=== PATIENT | male | born 1990 | race Caucasian/White ===

== ENCOUNTER 2019-01-03 16:36 | Emergency (ER) | payer OTHER ==
[~2019-01-03] VITALS: Ht 177.8 cm; Wt 99.8 kg
[2019-01-03 16:38] VITALS: Ht 177.8 cm; Wt 99.8 kg
[2019-01-03 20:33] VITALS: BP 121/66
== END 2019-01-03 20:33 | disposition home or self-care (01) ==
LOC: ED 16:36
DX: J10.1 Influenza due to other identified influenza virus with other respiratory manifestations (principal); R51 Headache; Z98.890 Other specified postprocedural states
CPT/HCPCS: 80201; 87804; J1100; J1885; J2765; J3475; J7030

== ENCOUNTER 2019-03-12 13:53 | Inpatient (IN) | payer OTHER ==
[~2019-03-12] VITALS: Ht 172.7 cm; Wt 78.2 kg
[2019-03-12 15:58] LABS: BASOPHIL % 0.2 % (0-2)
[2019-03-12 16:00] LABS: PLATELET COUNT 578 x10^3mcL (130-400); RED CELL DISTRIBUTION WIDTH 16.7 % (11.5-14.5)
[2019-03-12 16:19] LABS: CALCIUM 9.5 mg/dL (8.5-10.1); CARBON DIOXIDE 31.4 mmol/L (21-32); CREATININE SERUM 2.4 mg/dL (0.7-1.3); POTASSIUM SERUM 4.7 mmol/L (3.5-5.1)
[2019-03-12 16:26] LABS: BILIRUBIN TOTAL 0.4 mg/dL (0.20-1.00)
[2019-03-12 16:31] LABS: ALBUMIN 2.5 g/dL (3.4-5.0); TOTAL PROTEIN, SERUM 8.9 g/dL (6.4-8.2)
[2019-03-12 16:32] LABS: C REACTIVE PROTEIN 13.3 mg/dL (<=0.9)
[2019-03-12 19:41] LABS: UA SPECIFIC GRAVITY 1.015 (1.005-1.035); microscopic required? YES; urine erythrocyte 3+ (NEGATIVE)
[2019-03-12 20:48] VITALS: BP 156/101
[2019-03-12 20:56] VITALS: Ht 172.7 cm; Wt 78.2 kg
[2019-03-12 21:38] VITALS: BP 135/83
[2019-03-13 05:25] VITALS: BP 148/89
[2019-03-13 05:59] LABS: BASOPHIL % 0.6 % (0-2)
[2019-03-13 06:14] LABS: PLATELET COUNT 610 x10^3mcL (130-400); RED CELL DISTRIBUTION WIDTH 17.1 % (11.5-14.5)
[2019-03-13 06:53] LABS: CALCIUM 8.8 mg/dL (8.5-10.1); CREATININE SERUM 1.9 mg/dL (0.7-1.3); PHOSPHOROUS 5.4 mg/dL (2.5-4.9); POTASSIUM SERUM 4.3 mmol/L (3.5-5.1)
[2019-03-13 07:47] LABS: CARBON DIOXIDE 25.9 mmol/L (21-32)
[2019-03-13 08:42] VITALS: BP 158/105
[2019-03-13 12:09] VITALS: BP 158/109
[2019-03-13 15:58] VITALS: BP 169/108
[2019-03-13] MEDS ORDERED: BACLOFEN10 MG PO (17:06)
[2019-03-13] MEDS ORDERED: NORCO 10-325 T1 EACH PO (17:07)
[2019-03-13] MEDS ORDERED: TRAZODONE100 MG PO (17:09)
[2019-03-13] MEDS ORDERED: HORIZANT300 MG PO (17:15)
[2019-03-13 17:45] VITALS: BP 150/101
[2019-03-13 21:50] VITALS: BP 134/81
[2019-03-14 06:30] VITALS: BP 148/106
[2019-03-14 06:37] LABS: BASOPHIL % 0.8 % (0-2)
[2019-03-14 06:39] LABS: CALCIUM 9.3 mg/dL (8.5-10.1); CARBON DIOXIDE 27.9 mmol/L (21-32); CREATININE SERUM 1.9 mg/dL (0.7-1.3); POTASSIUM SERUM 4.4 mmol/L (3.5-5.1)
[2019-03-14 06:56] LABS: RED CELL DISTRIBUTION WIDTH 16.9 % (11.5-14.5)
[2019-03-14 09:53] VITALS: BP 156/93
[2019-03-14 13:00] VITALS: BP 144/76
[2019-03-14 13:15] LABS: PLATELET COUNT 628 x10^3mcL (130-400)
[2019-03-14 18:02] VITALS: BP 135/100
[2019-03-14 21:25] VITALS: BP 153/90
[2019-03-15 05:43] VITALS: BP 139/75
[2019-03-15 06:58] LABS: CALCIUM 8.6 mg/dL (8.5-10.1); CARBON DIOXIDE 27.7 mmol/L (21-32); CREATININE SERUM 2.4 mg/dL (0.7-1.3); POTASSIUM SERUM 3.8 mmol/L (3.5-5.1)
[2019-03-15 08:37] VITALS: BP 145/88
[2019-03-15 09:40] LABS: BASOPHIL % 0.6 % (0-2)
[2019-03-15 10:05] LABS: PLATELET COUNT 582 x10^3mcL (130-400); RED CELL DISTRIBUTION WIDTH 17.4 % (11.5-14.5)
[2019-03-15 12:43] VITALS: BP 142/84
[2019-03-15] MEDS ORDERED: CIPRO500 MG PO (13:30)
== END 2019-03-15 15:12 | disposition home or self-care (01) | DRG 720 ==
LOC: ED 13:53 → DU 19:24 → MU 03-14 16:06
PROVIDERS: Emergency Medicine; Internal Medicine Nephrology; ADMIT Internal Medicine Pulmonary Disease
DX: A41.9 Sepsis, unspecified organism (principal); N18.4 Chronic kidney disease, stage 4 (severe); G82.20 Paraplegia, unspecified; E46 Unspecified protein-calorie malnutrition; N31.9 Neuromuscular dysfunction of bladder, unspecified; R33.8 Other retention of urine; F12.20 Cannabis dependence, uncomplicated; N13.6 Pyonephrosis; D64.9 Anemia, unspecified; Z99.3 Dependence on wheelchair; Z90.79 Acquired absence of other genital organ(s)
CPT/HCPCS: 82962; G0378; J1956; J7030; Q0092

== ENCOUNTER 2019-04-16 01:09 | Inpatient (IN) | payer SELFPAY ==
[~2019-04-16] VITALS: Ht 172.7 cm; Wt 78.9 kg
[2019-04-16] VITALS (7 sets, daily range): BP systolic 119–145; BP diastolic 71–92; Ht 172.7 cm; Wt 78.9 kg
[~2019-04-16 01:09] MED LIST: BACLOFEN10 MG PO; CIPRO500 MG PO; HORIZANT300 MG PO; NORCO 10-325 T1 EACH PO; TRAZODONE100 MG PO
[2019-04-16 02:27] LABS: PLATELET COUNT 439 x10^3mcL (130-400); RED CELL DISTRIBUTION WIDTH 18.9 % (11.5-14.5)
[2019-04-16 02:40] LABS: BILIRUBIN TOTAL 0.49 mg/dL (0.20-1.00); CALCIUM 8.4 mg/dL (8.5-10.1); CARBON DIOXIDE 15.1 mmol/L (21-32); POTASSIUM SERUM 4.6 mmol/L (3.5-5.1)
[2019-04-16 02:43] LABS: ALBUMIN 2.1 g/dL (3.4-5.0); CREATININE SERUM 10.9 mg/dL (0.7-1.3)
[2019-04-16 02:49] LABS: BAND NEUTROPHIL 1 % (0-10); MONOCYTE 2 % (0-7); SEGMENTED NEUTROPHILS 93 % (37-75); acanthocyte (spur cell) 1+; rbc morphology (normal/abnorm) ABNORMAL (NORMAL)
[2019-04-16 02:51] LABS: PLATELET MORPHOLOGY PLATELETS NORMAL
[2019-04-16] MEDS ORDERED: BUPROPION HYDR300 MG PO (03:13)
[2019-04-16] MEDS ORDERED: ACID REDUCER20 MG PO (03:14)
[2019-04-16] MEDS ORDERED: BACLOFEN5 MG PO (03:14)
[2019-04-16 03:58] LABS: microscopic required? YES; urine erythrocyte TRACE (NEGATIVE)
[2019-04-16 04:36] LABS: T3 TOTAL 0.23 ng/mL
[2019-04-16 05:16] LABS: MAGNESIUM 2.3 mg/dL (1.8-2.4); PHOSPHOROUS 7.6 mg/dL (2.5-4.9)
[2019-04-16 05:23] LABS: CHOLESTEROL/HDL RATIO 3.3
[2019-04-16 05:50] LABS: FREE T4 0.91 ng/dL (0.76-1.46); FREE THYROXINE INDEX 1.6 ug/dL (1.4-4.5); T4(THYROXINE) 4.8 ug/dL (4.7-13.3)
[2019-04-16 09:28] LABS: CALCIUM 8.3 mg/dL (8.5-10.1); CARBON DIOXIDE 17.9 mmol/L (21-32); MAGNESIUM 2.3 mg/dL (1.8-2.4); PHOSPHOROUS 7.9 mg/dL (2.5-4.9); PLATELET COUNT 413 x10^3mcL (130-400); POTASSIUM SERUM 4.6 mmol/L (3.5-5.1); RED CELL DISTRIBUTION WIDTH 18.9 % (11.5-14.5)
[2019-04-16 09:32] LABS: CREATININE SERUM 10.4 mg/dL (0.7-1.3)
[2019-04-16 10:00] LABS: AMPHETAMINE QUAL UR POSITIVE (See below)
[2019-04-16 11:10] LABS: BAND NEUTROPHIL 0 % (0-10); BASOPHIL 0 % (0-2); MONOCYTE 1 % (0-7); SEGMENTED NEUTROPHILS 95 % (37-75)
[2019-04-16 11:11] LABS: PLATELET MORPHOLOGY PLATELETS INCREASED; rbc morphology (normal/abnorm) ABNORMAL (NORMAL)
[2019-04-16 17:16] LABS: CALCIUM 8.2 mg/dL (8.5-10.1); CARBON DIOXIDE 17.1 mmol/L (21-32); POTASSIUM SERUM 3.5 mmol/L (3.5-5.1)
[2019-04-16 17:18] LABS: CREATININE SERUM 9.8 mg/dL (0.7-1.3)
[2019-04-17 05:28] VITALS: BP 134/90
[2019-04-17 06:57] LABS: CALCIUM 8.7 mg/dL (8.5-10.1); CARBON DIOXIDE 20.7 mmol/L (21-32); POTASSIUM SERUM 3.9 mmol/L (3.5-5.1)
[2019-04-17 07:24] LABS: CREATININE SERUM 7.7 mg/dL (0.7-1.3)
[2019-04-17 08:32] VITALS: BP 137/92
[2019-04-17 08:43] LABS: MAGNESIUM 2.1 mg/dL (1.8-2.4); PHOSPHOROUS 6.1 mg/dL (2.5-4.9)
[2019-04-17 09:03] LABS: BILIRUBIN DIRECT 0.09 mg/dL (0.0-0.2); BILIRUBIN TOTAL 0.3 mg/dL (0.20-1.00); TOTAL PROTEIN, SERUM 6.4 g/dL (6.4-8.2)
[2019-04-17 11:15] LABS: BASOPHIL % 0.4 % (0-2)
[2019-04-17 11:20] LABS: PLATELET COUNT 501 x10^3mcL (130-400); RED CELL DISTRIBUTION WIDTH 17.9 % (11.5-14.5)
[2019-04-17 12:44] VITALS: BP 133/86
[2019-04-17 17:48] VITALS: BP 134/79
[2019-04-17 20:48] VITALS: BP 134/94
[2019-04-18 05:20] VITALS: BP 128/84
[2019-04-18 07:24] LABS: LACTIC DEHYDROGENASE (LDH) 741 U/L (100-190)
[2019-04-18 07:30] VITALS: BP 116/75
[2019-04-18 12:25] LABS: CALCIUM 8.6 mg/dL (8.5-10.1); CARBON DIOXIDE 26.5 mmol/L (21-32); POTASSIUM SERUM 3.4 mmol/L (3.5-5.1)
[2019-04-18 12:28] LABS: CREATININE SERUM 4.3 mg/dL (0.7-1.3)
[2019-04-18 12:35] VITALS: BP 135/78
[2019-04-18 12:39] LABS: MAGNESIUM 1.6 mg/dL (1.8-2.4); PHOSPHOROUS 3.4 mg/dL (2.5-4.9)
[2019-04-18 12:48] LABS: BASOPHIL % 0.2 % (0-2)
[2019-04-18 13:03] LABS: RED CELL DISTRIBUTION WIDTH 18.8 % (11.5-14.5)
[2019-04-18 13:14] LABS: PLATELET COUNT 570 x10^3mcL (130-400)
[2019-04-18 16:40] VITALS: BP 130/79
[2019-04-18 20:14] VITALS: BP 145/92
[2019-04-19 05:14] VITALS: BP 142/78
[2019-04-19 06:16] LABS: BASOPHIL % 0.1 % (0-2)
[2019-04-19 06:45] LABS: CALCIUM 8.7 mg/dL (8.5-10.1); CREATININE SERUM 3.2 mg/dL (0.7-1.3); MAGNESIUM 1.8 mg/dL (1.8-2.4); PHOSPHOROUS 3.6 mg/dL (2.5-4.9); POTASSIUM SERUM 4.2 mmol/L (3.5-5.1)
[2019-04-19 06:54] LABS: PLATELET COUNT 688 x10^3mcL (130-400); RED CELL DISTRIBUTION WIDTH 19.1 % (11.5-14.5)
[2019-04-19 07:08] LABS: ALPHA FETOPROTEIN TUMOR MARKER 3.7 ng/mL (0.0-8.3)
[2019-04-19 08:08] VITALS: BP 136/90
[2019-04-19 12:40] VITALS: BP 124/79
[2019-04-19 16:42] VITALS: BP 138/90
[2019-04-19 17:32] VITALS: BP 138/90
[2019-04-19 20:07] VITALS: BP 132/87
[2019-04-20 05:33] VITALS: BP 109/89
[2019-04-20 06:40] LABS: CALCIUM 8.6 mg/dL (8.5-10.1); CARBON DIOXIDE 27.2 mmol/L (21-32); CREATININE SERUM 2.6 mg/dL (0.7-1.3); MAGNESIUM 1.7 mg/dL (1.8-2.4); PHOSPHOROUS 3.7 mg/dL (2.5-4.9); POTASSIUM SERUM 3.8 mmol/L (3.5-5.1)
[2019-04-20 06:44] LABS: BASOPHIL % 0 % (0-2); RED CELL DISTRIBUTION WIDTH 18.6 % (11.5-14.5)
[2019-04-20 06:45] LABS: PLATELET COUNT 755 x10^3mcL (130-400)
[2019-04-20 08:41] VITALS: BP 142/84
[2019-04-20 12:41] LABS: RED BLOOD CELLS 3.64 M/mm3 (4.52-5.90)
[2019-04-20 12:53] LABS: IRON 100 ug/dL (65-170)
[2019-04-20 12:56] LABS: TOTAL IRON BINDING CAPACITY 241 ug/dL (250-450)
[2019-04-20 16:58] VITALS: BP 122/73
[2019-04-20 20:39] VITALS: BP 143/72
[2019-04-21 05:16] VITALS: BP 138/89
[2019-04-21 06:25] LABS: BASOPHIL % 0.1 % (0-2)
[2019-04-21 06:29] LABS: CARBON DIOXIDE 29.6 mmol/L (21-32); CREATININE SERUM 2.3 mg/dL (0.7-1.3); MAGNESIUM 1.4 mg/dL (1.8-2.4); PHOSPHOROUS 3.4 mg/dL (2.5-4.9); POTASSIUM SERUM 4.1 mmol/L (3.5-5.1)
[2019-04-21 07:22] LABS: RED CELL DISTRIBUTION WIDTH 19.1 % (11.5-14.5)
[2019-04-21 07:29] LABS: PLATELET COUNT 868 x10^3mcL (130-400)
[2019-04-21 09:00] VITALS: BP 148/87
== END 2019-04-21 11:53 | disposition left against medical advice (07) | DRG 871 ==
LOC: ED 01:09 → DU 04:04
PROVIDERS: Emergency Medicine; Family Medicine; Internal Medicine; Urology; ADMIT Internal Medicine
DX: A41.9 Sepsis, unspecified organism (principal); J18.9 Pneumonia, unspecified organism; E43 Unspecified severe protein-calorie malnutrition; J96.21 Acute and chronic respiratory failure with hypoxia; I21.A1 Myocardial infarction type 2; G82.20 Paraplegia, unspecified; I42.9 Cardiomyopathy, unspecified; N17.9 Acute kidney failure, unspecified; F32.9 Major depressive disorder, single episode, unspecified; I12.9 Hypertensive chronic kidney disease with stage 1 through stage 4 chronic kidney disease, or unspecified chronic kidney disease; N18.9 Chronic kidney disease, unspecified; F15.10 Other stimulant abuse, uncomplicated; Z53.29 Procedure and treatment not carried out because of patient's decision for other reasons; R74.0 Nonspecific elevation of levels of transaminase and lactic acid dehydrogenase [LDH]; E83.39 Other disorders of phosphorus metabolism; D64.9 Anemia, unspecified; E83.51 Hypocalcemia; R65.20 Severe sepsis without septic shock; D47.3 Essential (hemorrhagic) thrombocythemia; E86.0 Dehydration; Z87.440 Personal history of urinary (tract) infections; Z68.28 Body mass index [BMI] 28.0-28.9, adult; Z79.899 Other long term (current) drug therapy
CPT/HCPCS: 36600; 83880; 84439; 85378; 87804; A9540; G0378; J0696; J1644; J1885; J1940; J2270; J2405; J2543; J2920; J3370; J3490; J7030; J7050; J7060; Q0092

== ENCOUNTER 2019-07-12 21:48 | Inpatient (IN) | payer OTHER ==
[~2019-07-12] VITALS: Ht 172.7 cm; Wt 68.0 kg
[~2019-07-12 21:48] MED LIST changes: +ACID REDUCER20 MG PO; +BACLOFEN5 MG PO; +BUPROPION HYDR300 MG PO
[2019-07-12 22:18] VITALS: Ht 172.7 cm; Wt 68.0 kg
--- NOTE | 2019-07-12 22:24 | NUR ---
PT IN ED FOR BILAT LEG PAIN AND SOB. PITTING EDEMA NOTED TO BLE; PER PT ELEVATING BLE USUALLY HELPS BUT THIS TIME HAD NO RELIEF. PT STS STOPPED TAKING MEDS "FOR ABOUT A MONTH" BECAUSE MEDS WERE MAKING PT FEEL "JITTERY." PT NONCOMPLIANT FOR HTN AND ANTIDEPRESSION MEDS. PT STS SOB ON EXERTION. PT W/C BOUND. PT STS ONLY C/P WITH COUGH. PT AAO4. MSE BY DR OCHOA.
--- NOTE | 2019-07-12 22:25 | NUR ---
INFORMED DR. OCHOA OF PT BP AT THIS TIME, PER DR. OCHOA WATCH BP.
--- NOTE | 2019-07-12 22:28 | NUR ---
URINAL AT BEDSIDE.
--- NOTE | 2019-07-12 22:33 | NUR ---
MD AWARE OF PT'S VS AND PT'S NONCOMPLIANCE ON MEDS. EKG IN PROGRESS.
[2019-07-12 22:40] LABS: BASOPHIL % 1.3 % (0-2); PLATELET COUNT 322 x10^3mcL (130-400)
[2019-07-12 22:47] LABS: RED CELL DISTRIBUTION WIDTH 16.9 % (11.5-14.5)
[2019-07-12 23:18] LABS: BILIRUBIN TOTAL 0.7 mg/dL (0.20-1.00); CALCIUM 8.3 mg/dL (8.5-10.1); CARBON DIOXIDE 21.4 mmol/L (21-32); POTASSIUM SERUM 4.2 mmol/L (3.5-5.1)
[2019-07-12 23:23] LABS: ALBUMIN 3.2 g/dL (3.4-5.0)
[2019-07-12 23:25] LABS: CREATININE SERUM 8.8 mg/dL (0.7-1.3)
[2019-07-13] VITALS (8 sets, daily range): BP systolic 117–177; BP diastolic 68–115
--- NOTE | 2019-07-13 00:16 | NUR ---
PT IN [place] IN POSITION OF COMFORT, RESP E/U, NO DISTRESS. PT REMAINS CONNECTED TO FULL CM.
[2019-07-13 01:02] LABS: microscopic required? YES; urine erythrocyte TRACE (NEGATIVE)
--- NOTE | 2019-07-13 01:25 | NUR ---
REPORT GIVEN TO DEONTE AUGUSTE TO ASSUME CARE
--- NOTE | 2019-07-13 01:28 | NUR ---
PT IS BEING ADMITTED FOR ACUTE KIDNEY INJURY AND R/O CHF. PT STOPPED TAKING HIS ANTIHYPERENTION MED A MONTH AND NEURONTIN. PT BP N ADMISSION WAS 173/. HE COMPLAINS OF JENISE LOWER EXT PAIN RELATED TO THE SWEELING IN THE AREA.
--- NOTE | 2019-07-13 01:45 | NUR ---
PT CONTINUES TO C/O PAIN S/P 4 MG OF MORPHINE. WAITING FOR THE POINTING MACHINE OPERATOR TO DO HIS SCAN. INFORMED PT AND HIS MOTHER THAT HE IS NEXT.
--- NOTE | 2019-07-13 03:10 | NUR ---
RECIEVED PT VIA [facility]. PT ABLE TO TRANSFER HIMSELF FROM [facility] TO [facility] BED WITH UPPER EXTREMITIES. PT BREATHING ON ROOM AIR. BREATHING SLIGHTLY LABORED. LUNG SOUNDS CLEAR ON UPPER LOBES AND DIMINISHED BILATERAL BASES. NO CHEST PAIN. ALERT AND ORIENTED X4. NO HACKETT. DIZZINESS NOTED. PT ALSO STATES HE HAS HAD BLURRED VISION FOR PASSED WEEK. ON TELEMONITOR 13. SINUS TACHYCARDIA 97 BPM. RADIAL PULSES MODERATE. PEDAL PULSES WEAK. EDEMA 2-3+ ON BLE. NO TROUBLE SWALLOWING. LAST BM WAS 07/12/19. BM WAS DESCRIBED FORMED. NOT BM INCONTINENT. NO N/V. PT HAS GARZA DRAINING WITH YELLOW AND PINK TINGED URINE. PT STATES IT FEELS LIKE HE IS, "PEEING GLASS." PTS BASELINE IS WHEELCHAIR BOUND. UPPER EXTREMITIES MOVE ACTIVELY. BILATERAL LOWER EXTREMITIES ARE ACTIVE BUT LIMITED. SKIN IS INTACT. ABD SURGICAL SCAR WOUNDS HEALED AND INTACT. CYST PRESENT ON LEFT LOWER EXTREMITY. BLOOD PRESSURE WAS 175/114 AND PULSE 97. WILL CONTINUE TO MONITOR. BED IN LOWEST AND LOCKED POSITTION. CALL LIGHT WITHIN REACH.
--- NOTE | 2019-07-13 05:00 | NUR ---
ENPTIED 1,300ML OF PINK TINGED URINE, PT DENIES DYSURIA THIS AM. PT STATES THE "GLASS-LIKE" SENSATION WAS ONLY MOMENTARY IN ER. PT C/O BLE PAIN, 11/24. WAITING FOR PHARMACY TO VERIFY MORPHINE DOSE. IV SITE REMAINS PATENT, NO REDNESS, SWELLING OR PAIN NOTED. PT ABLE TO REPOSITION SELF IN BED, DENIES N/V/D. PT RESP EVEN AND UNLABORED ON RA. ALL COMFORT AND SAFETY MEASURES PROVIDED FOR, CALL LIGHT WITHIN REACH, BED IN LOWEST POSITION, WILL CONTINUE TO MONITOR.
--- NOTE | 2019-07-13 06:45 | NUR ---
PT GIVEN HYDRALAZINE ABOUT 15 MIN AGO FOR HIGH BP. RECHECKED BP X2. FIRST BP ON LEFT UPPER ARM WAS 188/125. RECHECKED ON LEFT UPPER ARM; 178/23. WILL FOLLOW UP AGAIN IN 15 MIN. PT DENIES ANY CHEST PAIN OR SOB. NO FACIAL DROOP. BED IN LOWEST AND LOCKED POSITION. CALL LIGHT WITHIN REACH.
--- NOTE | 2019-07-13 07:15 | NUR ---
RECHECKED BP. BP ON LEFT UPPER ARM WAS 160/104. PT DENIES ANY PAIN AT THIS TIME. ENDORSED CARE TO DAYSHIFT NURSE. BED IN LOWEST AND LOCKED POSITION. CALL LIGHT WITHIN REACH.
--- NOTE | 2019-07-13 07:20 | NUR ---
RECEIVED REPORT FROM JYOTI MELÉNDEZ RN Pt SITTING UP IN BED A&O X4 DENIES AY DIZZINESS AT THIS TIME. LLE EDEMA 2+ SCD INTACT.RECEIVED ON RA LUNGS CTA BILAT DIMINSHED AT BASES Pt DENIES ANY SOB. ABD SOFT/FLAT SCAR OLD SCAR NOTED. GARZA CATHETER DRAINING TO GRAVITY BLOOD CLOT IN URINE DECRESEING WILL MONITOR. Pt DENIES ANY PAIN. Pt PARAPLEGIC WHEELCHAIR BOUND WILL ASSIST WITHALL NEEDS. WHEELCHAIR AT BEDSIDE. IV ON RAC ATENT AND INTACT NO REDNESS OR EDEMA. ALL NEEDS ATTENDED TO. BED IN LOWEST POSITION CALL LIGHT WITHIN REACH. WILL CONTINUE TO MONITOR.
--- NOTE | 2019-07-13 08:16 | NUR ---
ADMINISTERED SCHEDULED MEDS Pt TOLERATED WELL NO ADVERSE AFFECTS NOTED. PT DENIES ANY DIZZINESS AT THIS TIME. STATED "I AM JUST REALLY TIRED" ALL NEEDS ATTENDED TO AT THIS TIME. BED IN LOWEST POSITION CALL LIGHT WITHIN REACH. WILL CONTINUE TO MONITOR.
--- NOTE | 2019-07-13 11:20 | NUR ---
CALLED LAB TO ADD URINE DRUG SCREEN THEY SAID THE WILL
--- NOTE | 2019-07-13 14:19 | NUR ---
Pt C/O PIN 8/10 IN LEGS ADMINISTERED MORPHINE IVP 2MG PER MAR Pt TOLERATED WELL NO ADVERSE REACTIONS NOTED. ALL NEEDS ATTENDED TO BED IN LOWEST POSITION CALL LIGHT WITHIN REACH. WILL CONTINUE TO MONITOR.
--- NOTE | 2019-07-13 14:30 | NUR ---
PAPER SPOOLER AT BEDSIDE FOR CONSULTATION
[2019-07-13 15:56] LABS: AMPHETAMINE QUAL UR NONE DETECTED (See below)
--- NOTE | 2019-07-13 17:34 | NUR ---
Pt SITTING UP IN BED EATING DINNER TOLERATING DIET WELL. PT DENIES ANY PAIN AT THIS TIME. ALL NEEDS ATTENDED TO. BED IN LOWEST POSITION CALL LIGHT WITHIN REACH. WILL CONTINUE TO MONITOR.
--- NOTE | 2019-07-13 18:43 | NUR ---
Pt LYING IN BED A&O X4 REMAINS ON RA DENIES ANY SOB OR PAIN. GARZA DRAINING TO GRAVITY YELLOW URINE WITH SMALL BLOOD CLOTS NOTED. WHEEL CHAIR AT BEDSIDE. ON TELE MONITOR Pt DENIES ANY CHEST PAIN OR PRESSURE. IV ON RAC Pt AND INTACT SALINE LOCKED. ALL NEEDS ATTENDED TO. BED IN LOWEST POSITION CALL LIGHT WITHIN REACH. WILL ENDORSE CARE TO NIGHT RN.
--- NOTE | 2019-07-13 20:00 | NUR ---
PT LAYING IN BED RESTING WITH EYES OPEN. ALERT AND ORIENTED X4. NO DROOP IN FACE. PT STATES NO DIZZINESS. NO CHEST PAIN. NO SOB. NO BLURRED VISION. ON TELEMONITOR 13. SINUS TACHYCARDIA 95. EDEMA BLE 2-3+. ON ROOM AIR. LUNG SOUNDS CTA. DIMINISHED BASES. LAST BM WAS 07/13/19. PT HAS GARZA AND IS DRAINING YELLOW WITH PINK TINGE URINE. PT HAS NO C/O PAIN AT THE GARZA SITE. NO ODOR. NO C/O PAIN AT THIS TIME. RAC 20G IV PATENT AND INTACT. NO REDNESS OR SWELLING. NO C/O PAIN AT THE IV SITE. LAST BP WAS 153/100. WILL CONTINUE TO MONITOR BP FREQUENTLY AND PRN. PT MADE COMFORTBALE. BED IN LOWEST AND LOCKED POSITION. CALL LIGHT WITHIN REACH.
--- NOTE | 2019-07-13 20:35 | NUR ---
RETOOK PTS BP. BP IS 151/103. HR IS 87. PT HAS NO SOB OR CHEST PAIN. NO C/O PAIN AT THIS TIME. WILL BE GIVING BP MEDICATIONS PRESCRIBED. WILL CONTIUE TO MONITOR. CALL LIGHT WITHIN REACH.
--- NOTE | 2019-07-13 21:00 | NUR ---
PTS RAC IV WAS LEAKING. NEW IV SITE WAS INSERTED ON RH 22G. IV HAD GOOD FLUSH AND BLOOD RETURN. PT HAS NO C/O PAIN AT THE SITE. ALTHOUGH, PT HAS C/O PAIN ON BLE AND IS REQUESTING PAIN MEDICATION. WILL FOLLOW UP. CALL LIGHT WITHIN REACH.
--- NOTE | 2019-07-13 22:00 | NUR ---
PT WAS GIVEN MORPHINE PRN PRESCRIBED. PT HAD C/O PAIN ON BLE 09/24. WILL FOLLOW UP FOR EFFECT OF MEDICATION. CALL LIGHT WITHIN REACH. WILL CONTINUE TO MONITOR.
--- NOTE | 2019-07-13 22:30 | NUR ---
PT SEEN RESTING IN BED WITH EYES CLOSED. WILL CONTINUE TO MONITOR. BED IN LOWEST AND LOCKED POSITION. CALL LIGHT WITHIN REACH.
[2019-07-14 06:06] VITALS: BP 130/94
[2019-07-14 07:01] LABS: BASOPHIL % 0.6 % (0-2); PLATELET COUNT 307 x10^3mcL (130-400)
[2019-07-14 07:12] LABS: RED CELL DISTRIBUTION WIDTH 16.8 % (11.5-14.5)
[2019-07-14 07:18] LABS: BILIRUBIN TOTAL 0.74 mg/dL (0.20-1.00); CALCIUM 8.5 mg/dL (8.5-10.1); CARBON DIOXIDE 25.7 mmol/L (21-32); MAGNESIUM 1.9 mg/dL (1.8-2.4); POTASSIUM SERUM 3.7 mmol/L (3.5-5.1); TOTAL PROTEIN, SERUM 6.3 g/dL (6.4-8.2)
--- NOTE | 2019-07-14 07:25 | NUR ---
ENDORSED CARE TO DAYSHIFT NURSE. PT IS IN LAYING IN BED WITH EYES CLOSED. NO C/O PAIN AT THIS TIME. BED IN LOWEST AND LOCKED POSITION. CALL LIGHT WITHIN REACH.
--- NOTE | 2019-07-14 07:25 | NUR ---
SEEN AOX4, NOT IN DISTRESS, TELE 13, NSR, WEAK PEDAL PULSES, +2 BLE EDEMA, CTA ON BLF, +BS, GARZA CATHETER IN PLACE WITH ORANGE YELLOW URINE, GENERALIZED WEAKNESS, LIMITED ROM, PARAPLEGIC, CYST TO LEFT CALF, NO PAIN AT THIS TIME, IV INTACT AND PATENT TO RH. NO REDNESS OR SWELLING. CALL LIGHT WITHIN REACH BED AT LOWEST POSITION, SIDE RAILS UP.
--- NOTE | 2019-07-14 08:17 | NUR ---
MEDICATIONS GIVEN PER EMAR.
[2019-07-14 08:28] LABS: ALBUMIN 2.9 g/dL (3.4-5.0)
[2019-07-14 08:29] LABS: CREATININE SERUM 7.1 mg/dL (0.7-1.3)
[2019-07-14 08:41] VITALS: BP 142/94
[2019-07-14 12:30] VITALS: BP 118/77
--- NOTE | 2019-07-14 14:18 | NUR ---
LEG PAIN 7/10. MORPHINE IVP GIVEN.
--- NOTE | 2019-07-14 14:21 | NUR ---
NS INFUSING WELL AT 60CC/HR. NO REDNESS OR SWELLING.
--- NOTE | 2019-07-14 14:51 | NUR ---
called dr tavares. per dr tavares, renal tiago is repeated because patient's creatinine has no come down that much and he wanted to see if hydronephrosis improved.
[2019-07-14 16:32] VITALS: BP 134/80
--- NOTE | 2019-07-14 19:15 | NUR ---
RECEIVED PT LAYING IN BED WITH HOB ELEVATED. PT IS AAOX4. SPEECH IS CLEAR. DENIES HACKETT. ON TELE #13 [address]ING SR. DENIES CHEST PAIN/CHEST PRESSURE. WEAK PEDAL PULSES. 2+ EDEMA NOTED TO BLE. SCDS IN PLACE. BREATHING IS EVEN AND UNLABORED ON RA. LUNG SOUNDS DIMINISHED AT THE BASES. DENIES SOB. ABD IS SOFT AND NONDISTENDED. BS ACTIVE. DENIES N/V/D. GARZA IN PLACE DRAINING TO GRAVITY PINK-YELLOW TINGED URINE. DENIES DYSURIA. PARAPALEGIC, WHEELCHAIR BOUND. CYST TO POSTERIOR LLE. DENIES ANY PAIN AT THIS TIME. IV TO RH PATENT AND INTACT RUNNING NS AT 60 CC/HR. NO ERYTHEMA NOTED. BED IN LOWEST POSITION. CALL LIGHT WITHIN REACH. WILL CONTINUE TO MONITOR.
[2019-07-14 20:37] VITALS: BP 115/74
--- NOTE | 2019-07-14 21:00 | NUR ---
ROUTINE MEDICATIONS ADMINISTERED AND TOLERATED WELL. NO ACUTE DISTRESS NOTED. BREATHING IS EVEN AND UNLABORED ON RA. NO RESP DISTRESS NOTED. PT C/O 10/ SHARP PAIN TO BLE. MEDICATED WITH MORPHINE PER APR ORDER. WILL REASSESS AND CHECK EFFECTIVENESS. BED IN LOWEST POSITION. CALL LIGHT WITHIN REACH. WILL CONTINUE TO MONITOR.
--- NOTE | 2019-07-14 23:00 | NUR ---
PT RESTING COMFORTABLY IN BED, WATCHING TV. BREATHING IS EVEN AND UNLABORED ON RA. NO RESP DISTRESS NOTED. DENIES ANY PAIN AT THIS TIME. ASKING FOR A SANDWICH, PROVIDED. WILL CONTINUE TO MONITOR.
--- NOTE | 2019-07-15 01:52 | NUR ---
PT C/O 10/10 SHARP BLE PAIN. MEDICATED WITH MORPHINE PRN PER MAR ORDER. WILL REASSESS AND CHECK EFFECTIVENESS.
--- NOTE | 2019-07-15 04:06 | NUR ---
PT RESTING COMFORTABLY. BREATHING IS EVEN AND UNLABORED ON RA. NO RESP DISTRESS NOTED. WILL CONTINUE TO MONITOR.
[2019-07-15 04:52] VITALS: BP 115/80
--- NOTE | 2019-07-15 06:44 | NUR ---
COMFORT AND SAFETY MEASURES MAINTAINED. ALL NEEDS ASSESSED AND ATTENDED TO. WILL CONTINUE TO MONITOR AND ENDORSE CARE TO DAY SHIFT NURSE.
--- NOTE | 2019-07-15 07:40 | NUR ---
SEEN IN BED AAOX4. BREATHING E/U ON ROOM AIR. DENIES PAIN AT THIS TIME. CARIAC DIET BREAKFAST SERVED, DENIES NAUSEA OR VOMITING. PARAPLEGIC WHEELCHAIR BOUND, ABLE TO USE BUE. GARZA CATH DRIANING TO GRAVITY YELLOW PINK TINGED IN COLOR. SCD TO BLE INPLACE. IVF NS TO RT HAND INFUSING AT 60ML/HR. CALL LIGHT PLACED WITHIN EASY REACH. SIDERAILS UP X2.
[2019-07-15 08:14] VITALS: BP 108/59
[2019-07-15 09:39] LABS: BILIRUBIN TOTAL 0.55 mg/dL (0.20-1.00); CALCIUM 8.5 mg/dL (8.5-10.1); CARBON DIOXIDE 31.7 mmol/L (21-32); POTASSIUM SERUM 3.4 mmol/L (3.5-5.1); TOTAL PROTEIN, SERUM 6.2 g/dL (6.4-8.2)
[2019-07-15 09:40] LABS: BASOPHIL % 1.4 % (0-2); PLATELET COUNT 327 x10^3mcL (130-400)
[2019-07-15 09:46] LABS: ALBUMIN 2.7 g/dL (3.4-5.0)
[2019-07-15 09:47] LABS: CREATININE SERUM 5.5 mg/dL (0.7-1.3)
[2019-07-15 12:09] VITALS: BP 104/45
[2019-07-15 16:23] VITALS: BP 106/65
--- NOTE | 2019-07-15 18:49 | NUR ---
NO ANY DISTRESS THROUGHOUT SHIFT. VSS. MORPHINE IV GIVEN X1 FOR BLE PAIN WITH GOOD RELIEF. ABLED TO TURN AND REPOSITION SELF IN BED. TOLERATED TO DIET WELL. GARZA CATHETER DRAINING OUT YELLOW-PIMK TINGED 2950ML OUTPUT THROUGHOUT SHIFT. IVF NS INFUSING WELL AT 60ML/HR TO RT HAND IV SITE.
--- NOTE | 2019-07-15 19:10 | NUR ---
RECEIVED REPORT FROM TARIK CLEMONS. PT IS AAOX4 AND DENIES HACKETT/DIZZINESS. PT IS ON TELE #13, NSR WITH HR 83. PT DENIES CP/PRESSURE. PT HAS WEAK PEDAL PULSES D/T HX OF PARAPLEGIA. NO EDEMA NOTED. PT LUNG SOUNDS DIMINISHED ON RA WITH E/U BREATHING. PT DENIES SOB OR RESP DISTRESS. PT ABD SOFT/NONDISTENDED WITH ACTIVE BS X4. PT DENIES N/V/C/D. PT HAS GARZA CATH IN PLACE DRAINING YELLOW/PINK TINGED URINE BY GRAVITY. PT HAS WEAKNESS TO BLE D/T PARAPLEGIA. PT USES WHEELCHAIR AT BASELINE. PT HAS CYST TO POSTERIOR LLE. PT IV TO RH 22G PATENT AND INTACT. PT DENIES ANY S/S OF PAIN OR DISCOMFORT AT THIS TIME. ALL NEEDS MET AT THIS TIME. CALL LIGHT WITHIN REACH. BED IN LOWEST POSITION. SIDE RAILS X2 UP. WILL CONTINUE TO MONITOR.
[2019-07-15 19:36] VITALS: BP 106/62
--- NOTE | 2019-07-16 00:46 | NUR ---
PT RESTING COMFORTABLY WITH EYES CLOSED, EASILY AROUSABLE. NO ACUTE DISTRESS NOTED. PT BREATHING E/U. ALL NEEDS MET AT THIS TIME. CALL LIGHT WITHIN REACH. BED IN LOWEST POSITION. SIDE RAILS X2 UP. WILL CONTINUE TO MONITOR.
--- NOTE | 2019-07-16 04:06 | NUR ---
PT RESTING COMFORTABLY WITH EYES CLOSED, EASILY AROUSABLE. PT BREATHING E/U. PT DENIES ANY S/S OF PAIN OR DISCOMFORT. ALL NEEDS MET AT THIS TIME. CALL LIGHT WITHIN REACH. BED IN LOWEST POSITION. SIDE RAILS X2 UP. WILL CONTINUE TO MONITOR.
[2019-07-16 06:07] VITALS: BP 130/76
--- NOTE | 2019-07-16 06:12 | NUR ---
PT RESTED COMFORTABLY IN INTERVALS DURING THE NIGHT, EASILY AROUSABLE. NO ACUTE DISTRESS NOTED DURING THE NIGHT. PT BREATHING E/U. PT DENIES SOB, RESP DISTRESS, CP/PRESSURE. COMFORT AND SAFETY MEASURES MAINTAINED. PT COMPLIED WITH NURSING CARE DURING THE NIGHT. ALL QUESTIONS AND CONCERNS ADDRESSED. IV PATENT AND INTACT. WILL ENDORSE CARE TO DAY SHIFT NURSE.
[2019-07-16 06:58] LABS: BILIRUBIN TOTAL 0.5 mg/dL (0.20-1.00); CALCIUM 7.8 mg/dL (8.5-10.1); CARBON DIOXIDE 25.4 mmol/L (21-32); MAGNESIUM 1.7 mg/dL (1.8-2.4); POTASSIUM SERUM 4.3 mmol/L (3.5-5.1)
[2019-07-16 07:00] LABS: ALBUMIN 2.6 g/dL (3.4-5.0); TOTAL PROTEIN, SERUM 5.7 g/dL (6.4-8.2)
[2019-07-16 07:01] LABS: CREATININE SERUM 4.2 mg/dL (0.7-1.3)
--- NOTE | 2019-07-16 07:17 | NUR ---
ENDORSED CARE TO TARIK CLEMONS AND VIBHA CLEMONS. ALL QUESTIONS AND CONCERNS ANSWERED.
[2019-07-16 08:13] VITALS: BP 124/64
--- NOTE | 2019-07-16 09:14 | NUR ---
RECEIVED PT FROM PM NURSE. PT IS AWAKE AND RESTING COMFORTABLY IN BED. PT IS A/OX 4. NO SOB, FACIAL DISTRESS NOTED. TELE #13. NSR. PT DENIES CHEST PAIN. LUNG SOUNDS IS DIMINISHED ON RA. CHEST RISES AND FALLS EVENLY. PULSES ARE EVEN AND PALPABLE WITH WEAK PEDAL PULSES. NO EDEMA NOTED. ABDOMEN SOFT AND NON DISTENDED WITH NORMACTIVE BS X4 QUADRANT. PT HAS GARZA CATH IN PLACE DRAINING YELLOW URINE. WEAKNESS NOTED ON BLE D/T HX OF PARAPLEGIA. PATIENT ABLE TO REPOSITION HIMSELF ON BED. SKIN INTACT. CYST TO CALF NOTED. NO C/O PAIN. IV SITE ON RH 22G. INTACT AND PATENT. RUNNING NS 60CC/HR. CALL LIGHT WITHIN REACH. BED IN LOWEST POSITION. WILL CONTINUE TO MONITOR.
[2019-07-16 12:32] VITALS: BP 94/52
[2019-07-16 16:16] VITALS: BP 99/54
--- NOTE | 2019-07-16 18:44 | NUR ---
PATIENT RESTING COMFORTABLY IN BED AT THIS TIME. WILL ENDORSE CONTINUITY OF CARE TO PM NURSE.
--- NOTE | 2019-07-16 19:17 | NUR ---
I HAVE REVIEWED THE DATA COLLECTION BY KIMANI (NAME):VIBHA ECHAVARRIA. ENTERED ON (DATE/TIME):07/16/19, 7A-7P. I CONCUR WITH THE DATA AND ANY EXCEPTIONS OR COMMENTS ARE LISTED BELOW:
[2019-07-16 19:18] VITALS: BP 135/92
--- NOTE | 2019-07-16 19:20 | NUR ---
RECEIVED REPORT FROM TARIK CLEMONS AND VIBHA CLEMONS. PT IS AAOX4 AN DENIES HACKETT/DIZZINESS. PT ON TELE #13, NSR WITH ELEV T. PT DENIES CP/PRESSURE. PT HAS WEAK PEDAL PULSES D/T HX OF PARAPLEGIA. PT LUNG SOUNDS DIMINISHED ON RA. PT DENIES SOB OR RESP DISTRESS. PT ABD SOFT/ROUND WITH ACTIVE BS X4. PT DENIES N/V/C/D. PT HAS GARZA CATH IN PLACE DRAINING YELLOW URINE. PT HAS WEAKNESS TO BLE. PT USES W/C AT BASELINE. PT SKIN INTACT. PT IV TO RH 22G PATENT AND INTACT. NS INFUSING WELL AT 125 ML/HR. ALL NEEDS MET AT THIS TIME. CALL LIGHT WITHIN REACH. BED IN LOWEST POSITION. SIDE RAILS X2 UP. WILL CONTINUE TO MONITOR.
--- NOTE | 2019-07-17 04:38 | NUR ---
PT RESTING COMFORTABLY IN BED ON HIS PHONE. PT C/O BLE PAIN 09/24. PER APR, ADMINISTERED MORPHINE IVP AT THIS TIME. WILL REASSESS PAIN. ALL NEEDS MET AT THIS TIME. CALL LIGHT WITHIN REACH. BED IN LOWEST POSITION. SIDE RAILS X2 UP. WILL CONTINUE TO MONITOR.
[2019-07-17 05:12] LABS: PLATELET COUNT 310 x10^3mcL (130-400); RED CELL DISTRIBUTION WIDTH 17.6 % (11.5-14.5)
[2019-07-17 05:16] LABS: MONOCYTE 10 % (0-7); SEGMENTED NEUTROPHILS 60 % (37-75); rbc morphology (normal/abnorm) NORMAL (NORMAL)
[2019-07-17 05:17] LABS: PLATELET MORPHOLOGY PLATELETS NORMAL
[2019-07-17 05:43] VITALS: BP 120/71
[2019-07-17 05:43] LABS: BILIRUBIN TOTAL 0.4 mg/dL (0.20-1.00); CALCIUM 7.7 mg/dL (8.5-10.1); CARBON DIOXIDE 23.6 mmol/L (21-32); MAGNESIUM 2.6 mg/dL (1.8-2.4); POTASSIUM SERUM 5.4 mmol/L (3.5-5.1)
[2019-07-17 05:53] LABS: ALBUMIN 2.7 g/dL (3.4-5.0); TOTAL PROTEIN, SERUM 6.1 g/dL (6.4-8.2)
--- NOTE | 2019-07-17 05:58 | NUR ---
PT RESTED COMFORTABLY WITH EYES CLOSED IN INTERVALS IN DURING THE NIGHT, EASILY AROUSABLE. PT IS AWAKE ON HIS PHONE. PT DENIES ANY ACUTE DISTRESS AT THIS TIME. IV PATENT AND INTACT. NS INFUSING WELL AT 125ML/HR. COMFORT AND SAFETY MEASURES MAINTAINED. ALL QUESTIONS AND CONCERNS ADDRESSED. WILL ENDORSE CARE TO DAY SHIFT NURSE.
--- NOTE | 2019-07-17 07:15 | NUR ---
ENDORSED CARE TO NAZANIN CLEMONS. ALL QUESTIONS AND CONCERNS ANSWERED.
[2019-07-17 08:04] VITALS: BP 126/67
--- NOTE | 2019-07-17 08:14 | NUR ---
AAO TIMES 4. PLEASANT, COOPERATIVE. LUNGS CTA. NO SOB. O2 SAT ON RA 100%. BS'S ACTIVE TIMES 4. GOOD APPETITE. PARAPLEGIC, ABLE TO GET IN W/C ALONE, AND TURNS HIMSELF WITHOUT DIFFICULTY. IV SITE CDI. NO C/O PAIN.
[2019-07-17 12:52] VITALS: BP 100/54
[2019-07-17 17:28] VITALS: BP 108/46
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
[2019-07-17 20:43] VITALS: BP 125/80
--- NOTE | 2019-07-18 00:48 | NUR ---
PT. C/O PAIN IN BLE. PAIN LEVEL 8/10/ PER PT., HE OFTEN EXPERIENCE PAIN TO HIS BLE. PRN MORPHINE IVP GIVEN ORDERED. WILL MONITOR.
[2019-07-18 05:48] VITALS: BP 123/77
[2019-07-18 06:27] LABS: BASOPHIL % 1.2 % (0-2); PLATELET COUNT 338 x10^3mcL (130-400)
[2019-07-18 06:35] LABS: CALCIUM 8.2 mg/dL (8.5-10.1); CREATININE SERUM 3.4 mg/dL (0.7-1.3); MAGNESIUM 2.3 mg/dL (1.8-2.4); PHOSPHOROUS 3.8 mg/dL (2.5-4.9); POTASSIUM SERUM 5.5 mmol/L (3.5-5.1)
[2019-07-18 06:47] LABS: RED CELL DISTRIBUTION WIDTH 18.4 % (11.5-14.5)
--- NOTE | 2019-07-18 06:56 | NUR ---
PT. SLEPT WELL THROUGHOUT THE NIGHT. NO FURTHER C/O PAIN THIS AM. F/C DRAINING WELL TO GRAVITY. IV SITE INTACT. CALL LIGHT WITHIN REACH. WILL ENDORSE PT. CARE TO INCOMING NURSE.
--- NOTE | 2019-07-18 07:00 | NUR ---
AAO TIMES 4. TELE # 13 SR. VS'S STABLE. NO SOB. O2 SAT ON RA 100%. BS'S ACTIVE TIMES 4. PARAPLEGIC, USES W/C INDEPENDENTLY, BPR SELF. IV SITE CDI. COOPERATIVE. NO C/O PAIN. NO SOB. COOPERATIVE.
[2019-07-18 08:33] VITALS: BP 129/89
[2019-07-18 12:49] VITALS: BP 108/69
--- NOTE | 2019-07-18 16:06 | NUR ---
1. Recommend continue Renal, cardiac diet as tolerate. 2. Provide double portion of CHO to honor pt's preference.
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
[2019-07-18 17:29] VITALS: BP 107/59
--- NOTE | 2019-07-18 18:43 | NUR ---
AAO TIMES 4. TELE # 13 SR. VS'S STABLE. NO SOB. DR MOCTEZUMA IS AWARE THAT PATIENT'S K IS 5.7, I STARTED CA GLUCONATE IVPB, AND GAVE ANOTHER DOSE OF LOKELMA PO. NO C/O PAIN.
--- NOTE | 2019-07-18 20:21 | NUR ---
PT. RESTING QUIETLY. ORIENTED X4. AWAKE, ALERT. DENIES HEADACHE OR DIZZINESS. PARAPLEGIA. FULL ROM TO BUE. BREATH SOUNDS CELAR THROUGHOUT LUNG [place], RESP. EVEN, UNLABORED. NO SOB NOTED. PT. ON RA. NSR ON MONITOR. DENIES CHESTPAIN. NO EDEMA TO EXTREMITIES. PEDAL PULSES MODERATE, ABD. SOFT AND ROUND, BOWEL SOUNS ACTIVE. IVF INFUSING WELL, SITE INTACT. CALL LIGHT WITHIN REACH.
[2019-07-18 21:06] VITALS: BP 117/64
--- NOTE | 2019-07-19 01:44 | NUR ---
PT. SLEEPING.IVF INFUSING WELL, SITE INTACT. CALL LIGHT REMAINS WITHIN REACH.
--- NOTE | 2019-07-19 05:38 | NUR ---
PT.'S IV SITE ADJUSTED AND SECURED. FLUSHNG WELL, INTACT. NO C/O PAINTHIS AM. NO RESP. DISTRESS THROUGHOUT NIGHT. CALL LIGHT WITHIN REACH. WILL ENDORSE PT CARE TO INCOMING NURSE.
[2019-07-19 05:40] VITALS: BP 114/64
[2019-07-19 07:04] LABS: CALCIUM 7.9 mg/dL (8.5-10.1); CARBON DIOXIDE 25.9 mmol/L (21-32); CREATININE SERUM 3.2 mg/dL (0.7-1.3); POTASSIUM SERUM 4.5 mmol/L (3.5-5.1)
[2019-07-19 07:11] LABS: PHOSPHOROUS 4.3 mg/dL (2.5-4.9)
--- NOTE | 2019-07-19 07:30 | NUR ---
RECEIVED PATIENT SITTING UP IN BED, ALERT AND ORIENTED. DENIES ANY PAIN OR DISCOMFORT. TELE 13 NSR. IVF INFUSING WELL TO LEFT HAND , SITE PATENT. RESP EVEN AND UNLABORED, LUNGS CLEAR ON ROOM AIR. ABD SOFT BOWEL SOUNDS ACTIVE, LBM VERY EARLY THIS AM. PATIENT IS PARAPLEGIC, BUT FULL ROM OF BUE. GARZA CATH DRAINING CLEAR YELLOW URINE. SKIN IS INTACT. PATIENT REMINDED OF THE NEED TO REPOSITION FREQUENTLY TO HELP PREVENT BREAKDOWN. PATIENT VERBALIZES HE UNDERSTOOD AND IS COMPLIANT. DENIES ANY PAIN OR DISOCOMFORT. WILL CONTINUE TO MONITOR.
[2019-07-19 07:57] VITALS: BP 115/76
--- NOTE | 2019-07-19 11:01 | NUR ---
I HAVE REVIEWED THE DATA COLLECTION BY KIMANI (NAME):NAYA JOHNSON ENTERED ON (DATE/TIME):07/19/2019 AT 0730 I CONCUR WITH THE DATA AND ANY EXCEPTIONS OR COMMENTS ARE LISTED BELOW:
[2019-07-19 11:56] VITALS: BP 130/78
--- NOTE | 2019-07-19 12:45 | NUR ---
PATIENT IS SITTING UP IN BED EATING LUNCH TRAY. D/C HOME PLAN WITH HOME HEALTH FOR GARZA CATH CARE. IVF INFUSING WELL. NO ACUTE DISTRESS NOTED. WILL CONTINUE TO MOMITOR.
[2019-07-19 13:18] VITALS: BP 130/78
[2019-07-19 14:30] VITALS: BP 130/78
--- NOTE | 2019-07-19 15:11 | NUR ---
PATIENT SITTING UP IN BED TALKING ON PHONE, DISCHARGE ORDERS RECEIVED. PATIENT REQUESTING TO DISCHARGE HOME WITH GARZA CATH, PER PATIENT HE STOPPED SELF CATHING, BUT WAS UNABLE TO COMPLETELY EMPTY HIS BLADDER WHEN HE VOIDED. CALL PLACED TO DR VARELA BY [facility]AD[facility] CHARGE NURSE. AWAITING RETURN CALL. HOME HEALTH NURSE HAS BEEN ARRANGED ALREADY FOR [employer] FOR PATIENT FOR GARZA CATH CARE. WILL CONTINUE TO MONITOR.
--- NOTE | 2019-07-19 15:27 | NUR ---
CALLED AND SPOKE TO AND MADE HER AWARE IF PT IS GOING HOME WITH HIS GARZA CATH, SAYS OKAY TO SEND PT HOME WITH HIS GARZA CATH D/T NEUROGENIC BLADDER. NAYA HARMAN ASSIGNED TO THIS PT MADE AWARE OF ABOVE.
--- NOTE | 2019-07-19 15:29 | NUR ---
NEW ORDER RECEIVED FROM DR VARELA TO KEEP GARZA CATH IN UPON DISCHARGE HOME TODAY.
--- NOTE | 2019-07-19 15:52 | NUR ---
PATIENT READY FOR D/C HOME. HL AND TELE DC'D. DISCHARGE INSTRUCTIONS AND HOME HEALTH INFO GIVEN. EDUCATION PROVIDED. GARZA CATH NOT DC'D ORDERED. [facility] BELONG[facility] LIST SIGNED. CONDITION APPEARS STABLE. PATIENT HAS HIS OWN W/C AT BEDSIDE. AWAITING FAMILY TO ARRIVE TO TAKE HIM HOME.
--- NOTE | 2019-07-19 17:05 | NUR ---
PATIENT IS SITTING UP IN BED TALKING ON THE PHONE. AWAITING RIDE TO COME TO PICK PATIENT UP. PATIENT IS READY. CONDITION REMAINS STABLE.
--- NOTE | 2019-07-19 17:58 | NUR ---
PATIENT IS SITTING UP IN BED FULLY DRESSED AND READY TO DISCHAGE HOME, EATING DINNER TRAY. PER PATIENT HIS FAMILY IS COMING TO PICK HIM UP, BUT PER PATIENT THEY ARE NOT HERE YET.
--- NOTE | 2019-07-19 18:42 | NUR ---
PATIENT DISCHARGED HOME AT THIS TIME, WITH ALL BELONGINGS.
== END 2019-07-19 18:42 | disposition home or self-care (01) | DRG 469 ==
LOC: ED 21:48 → DU 07-13 00:34
PROVIDERS: Emergency Medicine; Hospitalist; Internal Medicine; Internal Medicine Nephrology; Internal Medicine Pulmonary Disease; ADMIT Internal Medicine Pulmonary Disease; ATTEND Internal Medicine Pulmonary Disease
DX: N17.9 Acute kidney failure, unspecified (principal); E44.1 Mild protein-calorie malnutrition; D63.8 Anemia in other chronic diseases classified elsewhere; I16.1 Hypertensive emergency; R33.9 Retention of urine, unspecified; E83.42 Hypomagnesemia; E87.5 Hyperkalemia; N18.4 Chronic kidney disease, stage 4 (severe); Z91.14 Patient's other noncompliance with medication regimen; Z68.28 Body mass index [BMI] 28.0-28.9, adult; Z79.899 Other long term (current) drug therapy
CPT/HCPCS: 83880; 85378; G0378; J0360; J0610; J1644; J1650; J1940; J2270; J3475; J7030; Q0092

== ENCOUNTER 2019-11-04 06:26 | Emergency (ER) | payer OTHER ==
[~2019-11-04] VITALS: Ht 172.7 cm; Wt 86.2 kg
[~2019-11-04 06:26] MED LIST changes: +COL100 PO; +MEROPENEM-1 GM/50 ML IV; +METOPROLOL SUCC25 M2 PO; +WELSR PO
[2019-11-04 06:35] VITALS: Ht 172.7 cm; Wt 86.2 kg
[2019-11-04 09:28] VITALS: BP 118/67
== END 2019-11-04 09:28 | disposition home or self-care (01) ==
LOC: ED 06:26
DX: N39.0 Urinary tract infection, site not specified (principal); I10 Essential (primary) hypertension
CPT/HCPCS: 76770; Q0092